=== PATIENT | female | born 1955 | race Caucasian/White ===

== ENCOUNTER 2023-11-06 17:42 | Emergency (ER) | payer BC, SELFPAY ==
[2023-11-06 18:04] VITALS: BP 146/95
[2023-11-06 18:31] LABS: % Basophils 0.5 % (0-2); % Immature Granulocytes 0.5 % (0-0.5); % Lymphocytes 18.4 % (20.5-51.1); % Monocytes 10.7 % (1.7-9.3); % Neutrophils 67.9 % (42.2-75.2); Absolute Eosinophils 0.1 10^3/uL (0-0.7); Absolute Lymphocytes 1.2 10^3/uL (1.2-3.4); Absolute Monocytes 0.7 10^3/uL (0.1-0.6); Absolute Neutrophils 4.4 10^3/uL (1.4-6.5); Hematocrit 44.5 % (37.0-47.0); Hemoglobin 15.4 g/dL (12.0-16.0); Mean Corp Hgb Conc. 34.6 g/dL (33.0-37.0); Mean Corpuscular Hgb 30.1 pg (27.0-31.0); Mean Corpuscular Volume 87.1 fL (81.0-99.0); Mean Platelet Volume 9.6 fL (7.4-10.4); Nucleated Red Blood Cells % 0 %; Platelet Count 243 10^3/uL (130-400); Red Blood Cell Count 5.11 10^6/uL (4.20-5.40); Red Cell Dist. Width 12.6 % (11.5-14.5); White Blood Cell Count 6.4 10^3/uL (4.8-10.8)
[2023-11-06 18:45] LABS: ALT (SGPT) 52 U/L (0-35); AST (SGOT) 44 U/L (14-36); Albumin 4.4 g/dl (3.5-5.0); Alkaline Phosphatase 78 U/L (38-126); Blood Urea Nitrogen 12 mg/dl (7-17); Calcium 9.4 mg/dl (8.4-10.2); Carbon Dioxide 26 mmol/L (22-30); Chloride 103 mmol/L (98-107); Glucose 107 mg/dl (70-99); Potassium 4.3 mmol/L (3.5-5.1); Sodium 139 mmol/L (135-145); Total Bilirubin 0.6 mg/dl (0.2-1.3); Total Protein 7.3 g/dl (6.3-8.2); eGFR > 60.00
[2023-11-07] MEDS: MUCINEX 600 MG PO (00:50)
[2023-11-07] MEDS: DELTASONE 50 MG PO (00:50)
--- NOTE | 2023-11-07 07:30 | ED.GENMED ---
History of Present Illness
General
Chief Complaint: Cough
Source: patient
Exam Limitations: none
Time Seen by Provider: 11/06/23 23:41
Nursing documentation reviewed up to this point in time: agreed with
Travel History
Have you had any contact with someone who has COVID-19?: No
Do you have any symptoms of coronavirus? Fever > 100 degrees, chills, cough, shortness of breath, sore throat, loss of taste or smell, muscle aches, or headache?: No
History of Present Illness
History of Present Illness:
68-year-old female with a past medical history of asthma presents for evaluation of persistent cough in the setting of known COVID infection. Patient started feeling sick 10 days ago with hacking cough. Was initially seen in urgent care the day of
symptom onset and was prescribed azithromycin and she took 1 dose of this. Saw her primary doctor the next day who diagnosed her clinically with pneumonia and wrote her prescription for Levaquin which she took for a total of 5-day course. No
improvement with antibiotics. She says that she subsequently she took a home COVID test that was positive. Says that since then she has had persistent hacking cough and it does not seem to be going away and is causing her significant distress and
trouble sleeping and so she came to the emergency room for assessment. She has very mild shortness of breath. No chest pain. No fevers or chills. She is not having GI symptoms. She is vaccinated for COVID.
Review of Systems
Review of Systems
All Other Systems: ROS reviewed and negative except as documented in HPI and ROS
Constitutional: Reports fatigue; Denies fever or chills
EENT: Denies sore throat or runny nose
Respiratory: Reports cough and trouble breathing
Cardiac: Denies chest pain or palpitations
ABD/GI: Denies abdominal pain, nausea, vomiting or diarrhea
: Denies flank pain
Musculoskeletal: Denies neck pain or back pain
Neurological: Denies dizzy or headache
Phy Exam
Physical Exam
Physical Exam:
General: Awake, alert, oriented x3; no acute distress
Head: Normocephalic, atraumatic
Eyes: Conjunctiva normal
Throat: Airway intact, handling secretions
Neck: Trachea midline, supple without meningismus
Lungs: Hacking cough; normal respiratory rate, normal work of breathing, normal pulse ox on room air; she has occasional very faint scattered wheeze with end expiration but lungs otherwise clear
Heart: Regular rate and rhythm, no murmurs, gallops, or rubs
Abd: Soft, non distended, nontender
Neuro: Cranial nerves grossly intact, speech fluid
Skin: no rash
Extremities: No edema in extremities, equal pulses in all extremities
Scores
Heart Failure Risk
Heart Failure Risk Score: Not Applicable
Heart Score for Chest Pain Patients
STEMI patient?: Not applicable
Withdrawal Assessment of Alcohol
Withdrawal Assessment Completed?: Not applicable
Course
Orders/Labs/Results
Orders:
Orders
11/06/23 18:08
CXR2 [CR Chest - 2 Views ] Urgent
Comment:
Reason For Exam: coughing 10days post covid
11/06/23 18:21
Complete Blood Count/With Diff Urgent
Comprehensive Metabolic Panel Urgent
11/07/23 00:35
Guaifenesin [Mucinex] 600 mg PO NOW STA
Prednisone [Deltasone] 50 mg PO NOW STA
Abnormal Lab Results
11/06/23
18:21
Absolute Monos (auto) 0.7 H 10^3/uL
(0.1-0.6)
Lymphocytes % 18.4 L %
(20.5-51.1)
Monocytes % 10.7 H %
(1.7-9.3)
Glucose 107 H mg/dl
(70-99)
AST 44 H U/L
(14-36)
ALT 52 H U/L
(0-35)
11/06/23 18:21
11/06/23 18:21
Vital Signs
Initial and Last Documented VS:
Initial Vital Signs
Temp Pulse Resp BP Pulse Ox
36.8 C 99 16 146/95 97
11/06/23 18:04 11/06/23 18:04 11/06/23 18:04 11/06/23 18:04 11/06/23 18:04
Last Documented Vital Signs
Temp Pulse Resp BP Pulse Ox
36.8 C 99 16 146/95 100
11/06/23 18:04 11/06/23 18:04 11/06/23 18:04 11/06/23 18:04 11/06/23 23:47
MDM/Problems Addressed
Differential Diagnosis Includes:
Asthma exacerbation, persistent COVID, bronchitis, pneumonia
MDM/Problems Addressed:
68-year-old female presents with hacking cough for the past 10 days in the setting of positive COVID test. Cough lingering and so patient came to the emergency room for assessment. Vital signs normal exam as above. Suspect either mild asthma
exacerbation triggered by COVID or acute bronchitis. We sent labs which were significant only for mild LFT elevation likely in the setting of viral illness. Chest x-ray reviewed by me shows no acute pathology, no pneumonia. Will plan to start on
prednisone, advised to use albuterol every 4 to 6 hours at home and will prescribe Mucinex and dextromethorphan for cough. She will follow-up with her PCP as an outpatient. She feels very comfortable with this plan. Spoke about return precautions
all questions answered.
Chronic conditions affecting care:
Asthma
*Radiology
Radiology exam reviewed: preliminary read by ED provider and radiology read reviewed
*Pulse Oximetry
Patient hypoxic: no
*Critical Care Note
Total Time (30-74mins, 75-104mins- exclusive of procedures): Not Applicable
Data Reviewed
Source: patient
ED Attending Note
-
Portions of this chart may have been created with voice recognition software.� Occasional wrong word or��sound alike� substitutions may have occurred due to the inherent limitations of voice recognition software.
Discharge Plan
Departure
Patient Disposition: Home (Routine Discharge)
Date of Disposition: 11/07/23
Time of Disposition: 00:36
Patient with high blood pressure during this ER visit?: Yes
Discharge Problem:
COVID-19, Acute bronchitis
Instructions: Acute Bronchitis, Adult (DC), Cough, Adult (DC)
Prescriptions:
New
prednisone 50 mg tablet
50 mg PO DAILY Qty: 4 0RF
guaifenesin [Mucinex] 600 mg tablet extended release 12hr
600 mg PO Q12H PRN (Reason: Cough) Qty: 20 0RF
dextromethorphan HBr 10 mg/5 mL liquid
10 mg PO Q4H PRN (Reason: Cough) Qty: 118 0RF
Activity Restrictions/Additional Instructions:
Thank you for visiting the Emergency Department at [facility].
1. Please schedule a follow up appointment as directed. Call first thing tomorrow morning to make an appointment.
2. If indicated, please take your medications as instructed and indicated on discharge paperwork.
3. If any of your symptoms do not improve, or persist, or become more severe within 6-12 hours, please return to the emergency department for further care.
4. Please return to the emergency department if you develop a headache, neck pain/stiffness, fever greater than 100.4F, chest pain, shortness of breath, persistent nausea, vomiting, slurred speech, difficulty walking, numbness/tingling, weakness,
signs of infection or any other symptoms that are worrisome to you.
Please call [phone] if you have any questions.
Interventions
Interventions:
*Risk Screen - Suicide Last Done: 11/06/23 23:47
*General Assessment Last Done: 11/07/23 01:32
*Neglect/Abuse Screening Last Done: 11/06/23 23:47
ED- Fall Risk Assessment Last Done: 11/06/23 23:47
*ED COVID-19 Vaccine History Last Done: 11/06/23 18:04
*Nursing Disposition Last Done: 11/07/23 01:00
ED- Pulmonary Assessment Last Done: 11/06/23 23:47
Discharge Date and Time
Discharge Date/Time: 11/07/23 01:35
Print Language: SOMALI
== END 2023-11-07 01:35 | disposition home or self-care (01) ==
LOC: EMR 17:42
PROVIDERS: Emergency Medicine; EMERGENCY PHYSICIAN Emergency Medicine; FAMILY PHYSICIAN Family Medicine
DX: U07.1 COVID-19 (principal); J20.8 Acute bronchitis due to other specified organisms; R03.0 Elevated blood-pressure reading, without diagnosis of hypertension; R94.5 Abnormal results of liver function studies; J45.909 Unspecified asthma, uncomplicated; M79.7 Fibromyalgia; M35.9 Systemic involvement of connective tissue, unspecified; Z88.1 Allergy status to other antibiotic agents; Z88.5 Allergy status to narcotic agent
CPT/HCPCS: 99283; 71046; 80053; 85025

== ENCOUNTER → 2024-01-19 11:12 | Outpatient (REF) | payer OTHER, SELFPAY | LOC: HWRAD 11:12 | PROVIDERS: ATTENDING PHYSICIAN Physician Assistant; FAMILY PHYSICIAN Family Medicine | DX: M81.0 Age-related osteoporosis without current pathological fracture (principal); Z13.820 Encounter for screening for osteoporosis | CPT/HCPCS: 77080 ==

== ENCOUNTER → 2025-03-08 09:01 | Outpatient (REF) | payer OTHER, SELFPAY | LOC: WDC 09:01 | PROVIDERS: ATTENDING PHYSICIAN Family Medicine | DX: Z12.31 Encounter for screening mammogram for malignant neoplasm of breast (principal) | CPT/HCPCS: 77063; 77067 ==